=== PATIENT | male | born 1990 | race Caucasian/White ===

== ENCOUNTER 2017-01-28 15:46 | Emergency (ER) | payer OTHER ==
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
[2017-01-28] MEDS ORDERED: 0.9% Sodium Chloride 1,000 ML IV ONE (15:56)
[2017-01-28] MEDS ORDERED: HYDROmorphone 0.5 mg/0.5 mL iSecure Syringe IVPUSH PRN (16:00)
[2017-01-28] MEDS ORDERED: Ondansetron 2 mg/mL 2 mL Inj IVPUSH PRN (16:00)
[2017-01-28 16:10] LABS: BASOPHILS % (AUTO) 0.4 % (0-3); EOSINOPHILS % (AUTO) 1.6 % (0-5); MONOCYTES % (AUTO) 5.8 % (4-12); Mean Corpuscular Hemoglobin 29.7 pg (27.0-35.0); Mean Corpuscular Volume 86.5 fL (81-100); NEUTROPHILS % (AUTO) 63.6 % (40-74); Platelet Count 207 bil/L (150-400)
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
[2017-01-28 16:16] LABS: INR 0.94 ratio
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
[2017-01-28] MEDS ORDERED: Ketorolac 15 mg/mL Inj IVPUSH ONE (16:40)
[2017-01-28] MEDS ORDERED: NPR500T PO (17:05)
[2017-01-28] MEDS ORDERED: TRAM50TA2 PO (17:05)
== END 2017-01-28 17:35 | disposition home or self-care (01) ==
LOC: EDBD 15:46 → SED 15:46
DX: S06.9X9A Unspecified intracranial injury with loss of consciousness of unspecified duration, initial encounter (principal); S50.811A Abrasion of right forearm, initial encounter; S40.211A Abrasion of right shoulder, initial encounter; S70.311A Abrasion, right thigh, initial encounter; V17.4XXA Pedal cycle driver injured in collision with fixed or stationary object in traffic accident, initial encounter; Y93.55 Activity, bike riding; Y92.411 Interstate highway as the place of occurrence of the external cause; Y99.8 Other external cause status; F41.9 Anxiety disorder, unspecified
CPT/HCPCS: 36415; 70450; 71010; 71260; 72125; 74177; 80053; 85014; 85018; 85025; 85610; 85730; 86850; 96361; 96374; 99285; G0390; G0480; J1885; J7030; Q9967